=== PATIENT | female | born 1985 | race Caucasian/White ===

== ENCOUNTER 2024-02-22 07:20 | Day surgery (SDC) | payer MEDICAID ==
[2024-02-22] MEDS: Lactated Ringers 1,000 ML IV SCH (07:36)
[2024-02-22] MEDS: Cyclopentolat/Tropic/Phenyleph 1 ML Ophth Drop SDV EYERT SCH (07:36)
[2024-02-22] MEDS ORDERED: Midazolam 1 MG/ML 2 ML SDV ONE (08:06)
[2024-02-22] MEDS: Phenyleprhine/Ketorolac 4 ML Vial IR ONE (08:15)
[2024-02-22] MEDS: Tetracaine HCl/PF 0.5% 4 ML Bottle EYELF ONE (08:15)
[2024-02-22] MEDS: Lidocaine 1% 5 ML VIAL INJECT ONE (08:15)
[2024-02-22] MEDS: MOXIFLOXACIN PF in BSS 1 MG/ML VIAL ICORN ONE (08:15)
[2024-02-22] MEDS: Brimonidine 0.2% Ophth Soln 5 ML Bottle EYELF ONE (08:15)
[2024-02-22] MEDS: Povidone-Iodine 5% Sterile Ophth Soln 30 ML Bottle EYERT ONE (08:15)
[2024-02-22] MEDS: acetaZOLAMIDE 500 MG Cap.ER PO ONE (09:08)
[2024-02-22 09:57] VITALS: BP 130/86; PULSE 87
== END 2024-02-22 09:45 | disposition home or self-care (01) ==
LOC: CC.SDS 07:20
PROVIDERS: ATTEND Ophthalmology
DX: E10.36 Type 1 diabetes mellitus with diabetic cataract (principal); H57.03 Miosis; I11.0 Hypertensive heart disease with heart failure; I50.9 Heart failure, unspecified; B19.20 Unspecified viral hepatitis C without hepatic coma; Z87.891 Personal history of nicotine dependence; Z79.899 Other long term (current) drug therapy
CPT/HCPCS: A9270-GY; J1097; J2250; J3490; J7120; V2632

== ENCOUNTER 2024-03-07 13:45 | Observation (INO) | payer MEDICAID ==
[2024-03-07 14:00] LABS: BASOPHILS ABSOLUTE AUTO 0.02 10^3/uL (0.00-0.50); BASOPHILS PERCENT AUTO 0.3 % (0-1); EOSINOPHILS ABSOLUTE AUTO 0.22 10^3/uL (0.00-1.50); EOSINOPHILS PERCENT AUTO 3.2 % (0-6); HEMATOCRIT 29.9 % (37.0-47.0); HEMOGLOBIN 9.3 g/dL (12.0-16.0); IMMATURE GRAN ABSOLUTE AUTO 0.02 10^3/uL (0.00-0.49); IMMATURE GRAN PERCENT AUTO 0.3 % (0.0-4.9); LYMPHOCYTES ABSOLUTE AUTO 2.18 10^3/uL (0.60-5.00); LYMPHOCYTES PERCENT AUTO 32.2 % (24-44); MEAN CORPUSCULAR HEMOGLOBIN 29.6 pg (27.0-32.0); MEAN CORPUSCULAR HGB CONC 31.1 g/dL (32.0-36.0); MEAN CORPUSCULAR VOLUME 95.2 fL (83.0-97.0); MONOCYTES ABSOLUTE AUTO 0.61 10^3/uL (0.00-1.50); NEUTROPHILS ABSOLUTE AUTO 3.72 x10^3/uL (1.80-8.00); PLATELET COUNT,PLT 230 10^3/uL (150-400); RED BLOOD CELL COUNT 3.14 x10^6/uL (4.00-5.50); WHITE BLOOD CELL COUNT,WBC 6.8 10^3/uL (4.0-11.0)
[2024-03-07 14:21] LABS: ALANINE AMINOTRANSFERASE,ALT 64 U/L (12-78); ALBUMIN 1.9 g/dL (3.4-5.0); ALKALINE PHOSPHATASE 117 U/L (46-116); ASPARTATE AMNIOTRANSFERASE,AST 39 U/L (15-37); BILIRUBIN TOTAL 0.2 mg/dL (0.0-1.0); BLOOD UREA NITROGEN,BUN 44 mg/dL (7-18); CALCIUM 8.5 mg/dL (8.4-10.1); CARBON DIOXIDE,CO2 20 mmol/L (21-32); CHLORIDE,CL 107 mEq/L (98-106); CREATININE 1.4 mg/dL (0.6-1.0); GLUCOSE RANDOM 181 mg/dL (75-99); PRO B-TYPE NATRIUR PEPT,BNPPRO 431 pg/mL (0-1000); PROTEIN TOTAL,TP 5.8 g/dL (6.4-8.2); SODIUM,NA 136 mEq/L (136-145); TSH ULTRASENSITIVE 2.14 uIU/mL (0.36-5.60)
[2024-03-07 14:36] LABS: ESTIMATED GFR 50 mL/min (>=60)
[2024-03-07] MEDS ORDERED: Glucagon,Human Recombinant 1 MG Vial IM PRN ×2 (18:26→19:54)
[2024-03-07] MEDS ORDERED: 50% Dextrose in Water 50 ML Syringe IVPUSH PRN ×2 (18:26→19:54)
[2024-03-07] MEDS ORDERED: Acetaminophen 325 MG Tab PO PRN (18:30)
[2024-03-07] MEDS: Furosemide 40 MG/4 ML VIAL IVPUSH ONE (19:02)
[2024-03-07] MEDS: Albuterol 0.083% 2.5 MG/3 ML Neb Soln NEB ONE (19:03)
[2024-03-07] MEDS: Insulin Regular, Human 100 Units/ML 3 ML Vial IV ONE (19:03)
[2024-03-07] MEDS: Sodium Zirconium Cyclosilicate 10 GM Packet PO SCH (19:05)
[2024-03-07] MEDS: 50% Dextrose in Water 50 ML Syringe IVPUSH ONE (19:06)
[2024-03-07] MEDS ORDERED: Ondansetron 4 MG Tab.DIS PO PRN (19:19)
[2024-03-07] MEDS ORDERED: INSULIN NPH HUMAN ISOPHANE SCH (19:30)
[2024-03-07] MEDS ORDERED: [UNRECOGNIZED DRUG - OTHER] SCH (19:30)
[2024-03-07] MEDS: Gabapentin 100 MG Cap PO SCH (20:42)
[2024-03-07] MEDS: Carvedilol 6.25 MG Tab PO SCH (20:42)
[2024-03-07] MEDS: Insulin Glarg,Human.Rec.Analog 100 Unit/ML 10 ML Vial SUBCUT SCH (20:47)
[2024-03-07] MEDS: Insulin Lispro 100 Units/ML 3 ML Vial SUBCUT SCH (20:49)
[2024-03-07] MEDS: Ketorolac 0.5% Ophth Soln 5 ML Bottle EYERT SCH (20:52)
[2024-03-07 22:22] LABS: CALCIUM 8.2 mg/dL (8.4-10.1); CREATININE 1.7 mg/dL (0.6-1.0); EST CRCL DRUG DOSING (CG) 41.17 mL/min; MAGNESIUM 1.7 mg/dL (1.8-2.4); POTASSIUM,K 5.3 mEq/L (3.5-5.0)
[2024-03-08] MEDS: Pantoprazole 40 MG Tab.CR PO SCH (06:36)
[2024-03-08 07:44] LABS: BASOPHILS ABSOLUTE AUTO 0.03 10^3/uL (0.00-0.50); BASOPHILS PERCENT AUTO 0.4 % (0-1); EOSINOPHILS ABSOLUTE AUTO 0.31 10^3/uL (0.00-1.50); EOSINOPHILS PERCENT AUTO 3.8 % (0-6); HEMATOCRIT 28.9 % (37.0-47.0); HEMOGLOBIN 9.1 g/dL (12.0-16.0); IMMATURE GRAN ABSOLUTE AUTO 0.02 10^3/uL (0.00-0.49); IMMATURE GRAN PERCENT AUTO 0.2 % (0.0-4.9); LYMPHOCYTES ABSOLUTE AUTO 2.21 10^3/uL (0.60-5.00); LYMPHOCYTES PERCENT AUTO 26.9 % (24-44); MEAN CORPUSCULAR HEMOGLOBIN 29.8 pg (27.0-32.0); MEAN CORPUSCULAR HGB CONC 31.5 g/dL (32.0-36.0); MEAN CORPUSCULAR VOLUME 94.8 fL (83.0-97.0); MONOCYTES ABSOLUTE AUTO 0.87 10^3/uL (0.00-1.50); MONOCYTES PERCENT AUTO 10.6 % (0-10); NEUTROPHILS ABSOLUTE AUTO 4.79 x10^3/uL (1.80-8.00); NEUTROPHILS PERCENT AUTO 58.1 % (41-71); PLATELET COUNT,PLT 242 10^3/uL (150-400); RED BLOOD CELL COUNT 3.05 x10^6/uL (4.00-5.50); WHITE BLOOD CELL COUNT,WBC 8.2 10^3/uL (4.0-11.0)
[2024-03-08 07:49] LABS: CALCIUM 8.2 mg/dL (8.4-10.1); CREATININE 1.5 mg/dL (0.6-1.0); EST CRCL DRUG DOSING (CG) 46.65 mL/min; MAGNESIUM 1.7 mg/dL (1.8-2.4); POTASSIUM,K 5.3 mEq/L (3.5-5.0)
[2024-03-08] MEDS: Ferrous Sulfate 324 MG Tab.EC PO SCH (07:54)
[2024-03-08] MEDS: Loratadine 10 MG Tab PO SCH (07:54)
[2024-03-08] MEDS: Cholecalciferol (Vitamin D3) 25 MCG Tab PO SCH (07:54)
[2024-03-08] MEDS: Multivitamins with Iron/Calcium/Folic Acid/Minerals Tab PO SCH (07:54)
[2024-03-08] MEDS: Furosemide 80 MG Tab PO SCH (07:55)
[2024-03-08] MEDS: Lactobacillus Rhamnosus GG (Probiotic) Cap PO SCH (07:55)
[2024-03-08] MEDS: amLODIPine 2.5 MG Tab PO SCH (07:55)
[2024-03-08] MEDS: Lisinopril 20 MG Tab PO SCH (07:55)
[2024-03-08] MEDS: Rosuvastatin 10 MG Tab PO SCH (07:56)
[2024-03-08] MEDS ORDERED: Non-Formulary Medication 1 Each (Insulin Detemir [Levemir Flexpen] 100 UNIT/ML Insuln.Pen) SQ SCH (08:00)
[2024-03-08] MEDS: prednisoLONE Acetate 1% Ophth Susp 5 ML Bottle EYERT SCH (08:03)
[2024-03-08] MEDS ORDERED: VANCOmycin 1.5 GM/300 ML 1.5 GM in Premix Bag 1 BAG IV ONE (09:54)
[2024-03-08] MEDS: Insulin Lispro 100 Units/ML 3 ML Vial SUBCUT SCH (10:18)
[2024-03-08 12:28] VITALS: BP 104/71; PULSE 88
[2024-03-08] MEDS ORDERED: Melatonin 3 MG Tab PO SCH (20:00)
[2024-03-08] MEDS ORDERED: KETOROLAC 0.5% EYERT SCH (20:00)
[2024-03-08] MEDS ORDERED: PREDNISOLONE ACETATE 1% EYERT SCH (20:00)
== END 2024-03-08 14:00 | disposition home or self-care (01) ==
LOC: CC.FCMC 13:45 → CC.LAB 13:45 → CC.MS 18:10 → UNDOADMOB 18:10 → CC.MS 18:30
PROVIDERS: ADMIT Nurse Practitioner; ATTEND Family Medicine
DX: E87.5 Hyperkalemia (principal); I10 Essential (primary) hypertension; E10.9 Type 1 diabetes mellitus without complications; E78.00 Pure hypercholesterolemia, unspecified; D64.9 Anemia, unspecified; F41.9 Anxiety disorder, unspecified; F32.A Depression, unspecified; R25.2 Cramp and spasm; Z79.4 Long term (current) use of insulin; Z79.899 Other long term (current) drug therapy
CPT/HCPCS: 36415; 80048; 80053; 82947; 83735; 83880; 84443; 85025; 93005; 94640; A9270-GY; J1815-GY; J1940; J3490; J7613-GY

== ENCOUNTER 2024-06-08 10:40 | Emergency (ER) | payer MEDICAID ==
[2024-06-08 11:28] LABS: BASOPHILS ABSOLUTE AUTO 0.03 10^3/uL (0.00-0.50); BASOPHILS PERCENT AUTO 0.4 % (0-1); EOSINOPHILS ABSOLUTE AUTO 0.31 10^3/uL (0.00-1.50); EOSINOPHILS PERCENT AUTO 3.7 % (0-6); HEMATOCRIT 27.6 % (37.0-47.0); HEMOGLOBIN 8.4 g/dL (12.0-16.0); IMMATURE GRAN ABSOLUTE AUTO 0.01 10^3/uL (0.00-0.49); IMMATURE GRAN PERCENT AUTO 0.1 % (0.0-4.9); LYMPHOCYTES ABSOLUTE AUTO 1.91 10^3/uL (0.60-5.00); LYMPHOCYTES PERCENT AUTO 22.6 % (24-44); MEAN CORPUSCULAR HEMOGLOBIN 30.8 pg (27.0-32.0); MEAN CORPUSCULAR HGB CONC 30.4 g/dL (32.0-36.0); MEAN CORPUSCULAR VOLUME 101.1 fL (83.0-97.0); MONOCYTES ABSOLUTE AUTO 0.56 10^3/uL (0.00-1.50); MONOCYTES PERCENT AUTO 6.6 % (0-10); NEUTROPHILS ABSOLUTE AUTO 5.63 x10^3/uL (1.80-8.00); NEUTROPHILS PERCENT AUTO 66.6 % (41-71); PLATELET COUNT,PLT 224 10^3/uL (150-400); RED BLOOD CELL COUNT 2.73 x10^6/uL (4.00-5.50); WHITE BLOOD CELL COUNT,WBC 8.5 10^3/uL (4.0-11.0)
[2024-06-08 11:42] LABS: ALANINE AMINOTRANSFERASE,ALT 87 U/L (12-78); ALBUMIN 1.7 g/dL (3.4-5.0); ALKALINE PHOSPHATASE 148 U/L (46-116); ASPARTATE AMNIOTRANSFERASE,AST 136 U/L (15-37); BILIRUBIN TOTAL 0.4 mg/dL (0.0-1.0); BLOOD UREA NITROGEN,BUN 42 mg/dL (7-18); C-REACTIVE PROTEIN 2.26 mg/dL (<=0.50); CALCIUM 8.2 mg/dL (8.4-10.1); CARBON DIOXIDE,CO2 23 mmol/L (21-32); CHLORIDE,CL 109 mEq/L (98-106); CREATININE 2.1 mg/dL (0.6-1.0); GLUCOSE RANDOM 103 mg/dL (75-99); POTASSIUM,K 5.3 mEq/L (3.5-5.0); PROTEIN TOTAL,TP 5.4 g/dL (6.4-8.2); SODIUM,NA 141 mEq/L (136-145)
[2024-06-08 11:44] LABS: ESTIMATED GFR 31 mL/min (>=60)
[2024-06-08 11:45] LABS: LACTIC ACID 0.7 mmol/L (0.4-2.0)
[2024-06-08 11:49] LABS: APPEARANCE,URINE CLEAR (CLEAR); BILIRUBIN,URINE NEGATIVE (NEGATIVE); COLOR,URINE YELLOW (YELLOW); GLUCOSE,URINE 100 mg/dL (NEGATIVE); KETONES,URINE NEGATIVE (NEGATIVE); LEUKOCYTE ESTERASE,URINE NEGATIVE (NEGATIVE); NITRITE,URINE NEGATIVE (NEGATIVE); OCCULT BLOOD,URINE SMALL (NEGATIVE); PH,URINE 5.5 (4.5-8.0); PROTEIN,URINE >=300 mg/dL (NEGATIVE); UROBILINOGEN,URINE 0.2 EU/dL (0.2-1.0)
[2024-06-08 11:59] LABS: BACTERIA,URINE FEW /HPF (NOT SEEN); EPITHELIAL CELLS,URINE FEW /HPF (NOT SEEN); RBC,URINE 0-5 /HPF (0-5)
[2024-06-08 12:00] LABS: YEAST,URINE FEW /HPF (NOT SEEN)
[2024-06-08] MEDS: Furosemide 40 MG/4 ML VIAL IVPUSH ONE (12:34)
[2024-06-08] MEDS: cefTRIAXone 1 GM Vial IVPUSH ONE (12:34)
[2024-06-08 14:17] VITALS: BP 106/74; PULSE 83
[2024-06-08] MEDS: Take Home: Sulfamethoxazole/Trimethoprim 800-160 MG Tab, 6 Tab Pack PO ONE (14:22)
[2024-06-08] MEDS: Furosemide 80 MG Tab PO ONE (15:09)
== END 2024-06-08 16:15 | disposition home or self-care (01) ==
LOC: CC.ED 10:40
DX: I11.0 Hypertensive heart disease with heart failure (principal); I50.9 Heart failure, unspecified; N39.0 Urinary tract infection, site not specified; E78.00 Pure hypercholesterolemia, unspecified; E10.21 Type 1 diabetes mellitus with diabetic nephropathy; Z86.16 Personal history of COVID-19; Z90.49 Acquired absence of other specified parts of digestive tract; Z79.899 Other long term (current) drug therapy; Z79.4 Long term (current) use of insulin
CPT/HCPCS: 36415; 51702; 71045; 80053; 81001; 83605; 83880; 85025; 86140; 87040; 93005; 93010; 96374; 96375; 99283-25; 99284; A9270-GY; J0696; J1940

== ENCOUNTER 2024-07-25 06:13 | Day surgery (SDC) | payer MEDICAID ==
[2024-07-25] MEDS: Phenylephrine 2.5% Ophth Soln 2 ML Bot EYELF SCH (06:30)
[2024-07-25] MEDS: Tropicamide 1% Ophth Soln 3 ML Bottle EYELF SCH (06:31)
[2024-07-25] MEDS: Cyclopentolate 1% Opth Soln 2 ML Bottle EYELF SCH (06:32)
[2024-07-25] MEDS ORDERED: Midazolam 1 MG/ML 2 ML SDV ONE (06:54)
[2024-07-25] MEDS: Povidone-Iodine 5% Sterile Ophth Soln 30 ML Bottle EYELF SCH (07:08)
[2024-07-25] MEDS: Brimonidine 0.2% Ophth Soln 5 ML Bottle EYELF SCH (07:08)
[2024-07-25] MEDS: Tetracaine HCl/PF 0.5% 4 ML Bottle EYELF SCH (07:08)
[2024-07-25] MEDS: Phenyleprhine/Ketorolac 4 ML Vial OP SCH (07:08)
[2024-07-25] MEDS: Lidocaine 1% PF 2 ML SDV INJECT ONE (07:08)
[2024-07-25] MEDS: MOXIFLOXACIN PF in BSS 1 MG/ML VIAL IO SCH (07:08)
[2024-07-25] MEDS: acetaZOLAMIDE 500 MG Cap.ER PO SCH (07:43)
[2024-07-25 09:07] VITALS: BP 148/90; PULSE 71
== END 2024-07-25 08:20 | disposition home or self-care (01) ==
LOC: CC.SDS 06:13
PROVIDERS: ATTEND Ophthalmology
DX: E10.36 Type 1 diabetes mellitus with diabetic cataract (principal); H57.03 Miosis; I11.0 Hypertensive heart disease with heart failure; I50.9 Heart failure, unspecified; Z87.891 Personal history of nicotine dependence
CPT/HCPCS: A9270-GY; J1097; J2250; J3490; V2632